=== PATIENT | female | born 1960 | race African-American/Black ===

== ENCOUNTER 2023-08-19 11:46 | Emergency (ER) | payer MEDICAID ==
[~2023-08-19] VITALS: Ht 165.1 cm; Wt 68.0 kg
[2023-08-19 11:52] VITALS: O2SAT 98
[2023-08-19 16:39] VITALS: BP 127/85; PULSE 85; RESP 18; TEMP 98.6
== END 2023-08-19 16:46 | disposition home or self-care (01) ==
LOC: ER 11:46
DX: M25.562 Pain in left knee (principal); I10 Essential (primary) hypertension; Z88.0 Allergy status to penicillin; Z88.5 Allergy status to narcotic agent
CPT/HCPCS: 73564; 29505; 99283; Z7610